=== PATIENT | female | born 1980 | race Caucasian/White ===

== ENCOUNTER 2023-07-20 08:51 | Emergency (ER) | payer OTHER, SELFPAY ==
[2023-07-20 08:52] VITALS: BP 110/66
--- NOTE | 2023-07-20 09:52 | ED.GENMED ---
History of Present Illness
General
Chief Complaint: Allergic Reaction
Source: patient
Time Seen by Provider: 07/20/23 09:42
Travel History
Have you had any contact with someone who has COVID-19?: No
Do you have any symptoms of coronavirus? Fever > 100 degrees, chills, cough, shortness of breath, sore throat, loss of taste or smell, muscle aches, or headache?: No
History of Present Illness
History of Present Illness:
43-year-old female presenting to the emergency department for evaluation of a reaction on her face/neck that she believes was related to a recent microneedling procedure done this past Wednesday although notes that for the last 10 months or so she
seems to be having more constant reactions to various medications/creams and believes that her body was reacting to something within her breast implants so had these removed about a month or so ago, had an allergic reaction to the glue/tape that was
placed over the surgical incisions. Patient states that she was given a hydrocortisone cream by the facility coordinator which she is used twice and has also started taking Benadryl since yesterday. Patient states that her main concern is erythema and
edema of her face but denies any difficulty breathing, swallowing, drooling, spitting or any other concerns.
Past History
Past History
ED Past Medical History: Psychiatric and Other (Obsessive-compulsive disorder); Negative HTN, Hypercholesterolemia, IDDM or NIDDM
ED Past Surgical History: and Other
Social History
Tobacco: Smoker
Alcohol: None
Drug: None
Personal: Single
Living: with family
Employment: Employed
Family History
Family History: Other (aunts with cva.); Negative Early CAD
Review of Systems
Review of Systems
All Other Systems: ROS reviewed and negative except as documented in HPI and ROS
Phy Exam
Physical Exam
Physical Exam:
GENERAL: Alert , in no apparent distress
EYE: conjunctiva clear
Head: Normocephalic atraumatic, patient has erythema across her face mainly concentrated around the cheeks and mandibular region with some mild soft tissue swelling
NECK: Supple,
ENT: mmm. No uvular deviation, no tonsillar edema, tolerating secretions, no stridor or trismus
LUNGS: no acute respiratory distress
NEUROLOGICAL: Alert and oriented
SKIN: Warm and dry, skin intact.
MUSCULOSKELETAL: well perfused.
PSYCH: Normal and appropriate interaction.
Scores
Heart Failure Risk
Heart Failure Risk Score: Not Applicable
Heart Score for Chest Pain Patients
STEMI patient?: Not applicable
Withdrawal Assessment of Alcohol
Withdrawal Assessment Completed?: Not applicable
Course
Vital Signs
Initial and Last Documented VS:
Initial Vital Signs
Temp Pulse Resp BP Pulse Ox
97.8 F 72 20 110/66 100
07/20/23 08:52 07/20/23 08:52 07/20/23 08:52 07/20/23 08:52 07/20/23 08:52
Last Documented Vital Signs
Temp Pulse Resp BP Pulse Ox
97.8 F 72 20 110/66 100
07/20/23 08:52 07/20/23 08:52 07/20/23 08:52 07/20/23 08:52 07/20/23 08:52
MDM/Problems Addressed
Differential Diagnosis Includes:
Contact dermatitis, inflammatory response, medication reaction
MDM/Problems Addressed:
43-year-old female presenting emergency department for evaluation of what she believes to be an allergic reaction/inflammatory response to cosmetic procedure done this past Wednesday. Notes that she has had inflammatory responses over the last 10
months to various different cosmetic procedures including lip filler as well as believing a reaction to her breast implants from a previous breast augmentation. Patient notes that she is very upset as she cannot figure out why these reactions keep
happening. There is no evidence for anaphylaxis. Will provide with a prescription for prednisone. Advised continued Benadryl as well as Pepcid for relief of symptoms. I provided patient with information for clamp remover as well as mathematics education professor for
an outpatient follow-up. She is otherwise stable for discharge from the emergency department.
*Pulse Oximetry
Patient hypoxic: no
*Critical Care Note
Total Time (30-74mins, 75-104mins- exclusive of procedures): Not Applicable
ED Attending Note
-
Portions of this chart may have been created with voice recognition software.� Occasional wrong word or��sound alike� substitutions may have occurred due to the inherent limitations of voice recognition software.
Discharge Plan
Departure
Patient Disposition: Home (Routine Discharge)
Date of Disposition: 07/20/23
Time of Disposition: 09:53
Patient with high blood pressure during this ER visit?: No
Discharge Problem:
Allergic reaction to cosmetics
Instructions: Allergic Reaction ED
Prescriptions:
New
prednisone 10 mg Tablet
See Rx Instructions .ROUTE .COMPLEX Qty: 30 0RF
Rx Instructions:
Take By Mouth:
40 mg daily x3 days, 30 mg daily x3 days,
20 mg daily x3 days, 10 mg daily x3 days.
No Action
Vitamins
1 mg PO DAILY
oxycodone-acetaminophen 5 MG/325 MG tablet
1 tab PO Q4HPRN PRN (Reason: moderate pain) Qty: 30 0RF
ibuprofen 600 MG tablet
600 mg PO Q6HPRN PRN (Reason: moderate pain/cramps) Qty: 0 0RF
Referrals:
Lupe Sebastian MD [Consulting Staff] - (Restaurant Crew Person - Call for appointment)
Bobbi Soares DO [Active] - (Dermatology - Call for appointment)
Interventions
Interventions:
*Risk Screen - Suicide Last Done: 07/20/23 08:52
*General Assessment Last Done: 07/20/23 08:52
*Neglect/Abuse Screening Last Done: 07/20/23 08:52
ED- Fall Risk Assessment Last Done: 07/20/23 10:00
*Nursing Disposition Last Done: 07/20/23 10:02
ED- Cardiac Assessment Last Done: 07/20/23 10:00
ED- Pulmonary Assessment Last Done: 07/20/23 10:00
ED-Skin Assessment Last Done: 07/20/23 10:00
Discharge Date and Time
Print Language: DJIBOUTIAN
--- NOTE | 2023-07-20 10:01 | EDRN ---
Discharge instructions given to patient by Rony Templeton Pa-C. Patient verbalized understanding. Ambulated with steady gait to the [facility].
== END 2023-07-20 10:03 | disposition home or self-care (01) ==
LOC: EMR 08:51
PROVIDERS: EMERGENCY PHYSICIAN Emergency Medicine; FAMILY PHYSICIAN Family Medicine
DX: T78.49XA Other allergy, initial encounter (principal); X58.XXXA Exposure to other specified factors, initial encounter; F17.200 Nicotine dependence, unspecified, uncomplicated
CPT/HCPCS: 99283

== ENCOUNTER 2023-07-26 09:31 | Emergency (ER) | payer OTHER, SELFPAY ==
[2023-07-26 09:43] VITALS: BP 105/77
[2023-07-26 10:05] LABS: % Basophils 0.7 % (0-2); % Immature Granulocytes 0.3 % (0-0.5); % Lymphocytes 33.3 % (20.5-51.1); % Monocytes 7.5 % (1.7-9.3); % Neutrophils 55.2 % (42.2-75.2); Absolute Basophils 0.1 10^3/uL (0-0.2); Absolute Eosinophils 0.2 10^3/uL (0-0.7); Absolute Lymphocytes 2.5 10^3/uL (1.2-3.4); Absolute Monocytes 0.6 10^3/uL (0.1-0.6); Absolute Neutrophils 4.1 10^3/uL (1.4-6.5); Hemoglobin 13.9 g/dL (12.0-16.0); Mean Corp Hgb Conc. 34.8 g/dL (33.0-37.0); Mean Corpuscular Hgb 33.1 pg (27.0-31.0); Mean Corpuscular Volume 95.2 fL (81.0-99.0); Mean Platelet Volume 8.8 fL (7.4-10.4); Nucleated Red Blood Cells % 0 %; Platelet Count 271 10^3/uL (130-400); Red Cell Dist. Width 12.1 % (11.5-14.5); White Blood Cell Count 7.4 10^3/uL (4.8-10.8)
[2023-07-26 10:32] LABS: ALT (SGPT) 18 U/L (0-35); AST (SGOT) 19 U/L (14-36); Albumin 4.9 g/dl (3.5-5.0); Alkaline Phosphatase 64 U/L (38-126); Blood Urea Nitrogen 19 mg/dl (7-17); Calcium 10.1 mg/dl (8.4-10.2); Carbon Dioxide 25 mmol/L (22-30); Chloride 103 mmol/L (98-107); Glucose 100 mg/dl (70-99); Potassium 3.8 mmol/L (3.5-5.1); Sodium 136 mmol/L (135-145); eGFR > 60.00
[2023-07-26] MEDS: ZOFRAN 4 MG IV ×2 (11:43→14:23)
[2023-07-26] MEDS: NSS 1000 IV ×2 (11:44→14:23)
--- NOTE | 2023-07-26 11:45 | ED.GENMED ---
History of Present Illness
General
Chief Complaint: Abdominal Symptoms
Source: patient
Exam Limitations: none
Time Seen by Provider: 07/26/23 10:55
Nursing documentation reviewed up to this point in time: agreed with
Travel History
Have you had any contact with someone who has COVID-19?: No
Do you have any symptoms of coronavirus? Fever > 100 degrees, chills, cough, shortness of breath, sore throat, loss of taste or smell, muscle aches, or headache?: No
History of Present Illness
History of Present Illness:
pt is a 43 y/o F with h/o anxiety/depression
on pred taper after allergic reaction to face cream after microneedling last week
here with diarrhea, starting 3 days ago, with anything she tries to eat or drink
5 pounds weigh tloss
also had some vomiting a few times on the day of onset but she otherwise hasn't vomited
she feels lightheaded with standing
no fever/chills, focal pain
the episodes of cramping intermittently but not severe
no urinary symptoms
no sore throat, cough, cold symptoms
Past History
Past History
ED Past Medical History: Psychiatric and Other (Obsessive-compulsive disorder); Negative HTN, Hypercholesterolemia, IDDM or NIDDM
ED Past Surgical History: and Other
Social History
Tobacco: Smoker
Alcohol: None
Drug: None
Personal: Single
Living: with family
Employment: Employed
Family History
Family History: Other (aunts with cva.); Negative Early CAD
Review of Systems
Review of Systems
Allergies reviewed?: Yes
All Other Systems: Not applicable
Phy Exam
Physical Exam
Physical Exam:
GENERAL: Alert , anxious
EYE: pupils equal and reactive
NECK: Supple
ENT: o/p clr, mmm.
CARDIAC: Regular rate and rhythm .no edema
LUNGS: Clear breath sounds bilaterally, no acute respiratory distress, no wheezes/rales/rhonchi
ABDOMEN: Soft, without focal tenderness, no r/g, no cvat, normal bowel sounds
NEUROLOGICAL: Alert and oriented, no focal neuro deficits
SKIN: Warm and dry, skin intact.
MUSCULOSKELETAL: No edema, well perfused. neg chauncey's sign
PSYCH: anxious, tearful, depressed;
Course
Orders/Labs/Results
Orders:
Orders
07/26/23 09:54
Complete Blood Count/With Diff Urgent
Comprehensive Metabolic Panel Urgent
HCG, Serum Qualitative Screen Urgent
Comment: ADD ON
TSH Reflex To Free T4 Urgent
Comment: ADD ON
07/26/23 11:33
Add On- LAB Urgent
Tests Added?: tsh reflex t4, hcg serum qual
0.9% Sodium Chloride 1000 ml [Nss] 1,000 ml IV BOLUS
Ondansetron Injectable [Zofran] 4 mg IV NOW STA
US Abdomen Complete/Upper Urgent
Comment:
Reason For Exam: elevated bili
07/26/23 11:42
Stool Culture Urgent
MISTI Source: Feces/Stool
Specimen Description:
Date Specimen was Collected: 07/26/23
Time Specimen was Collected: 11:39
07/26/23 11:43
STOOL [C difficile Antigen & Toxins] Urgent
MISTI Source: Feces/Stool
Specimen Description:
Date Specimen was Collected: 07/26/23
Time Specimen was Collected: 11:39
07/26/23 11:45
Crisis Consult Urgent
Reason for Consult: passive SI, anxiety, depression
07/26/23 14:18
0.9% Sodium Chloride 1000 ml [Nss] 1,000 ml IV BOLUS
Ondansetron Injectable [Zofran] 4 mg IV NOW STA
Abnormal Lab Results
07/26/23
09:54
MCH 33.1 H pg
(27.0-31.0)
BUN 19 H mg/dl
(7-17)
Creatinine 0.5 L mg/dL
(0.6-1.0)
Glucose 100 H mg/dl
(70-99)
Total Bilirubin 3.0 H mg/dl
(0.2-1.3)
07/26/23 09:54
07/26/23 09:54
Vital Signs
Initial and Last Documented VS:
Initial Vital Signs
Temp Pulse Resp BP Pulse Ox
98.1 F 96 14 105/77 96
07/26/23 09:43 07/26/23 09:43 07/26/23 09:43 07/26/23 09:43 07/26/23 09:43
Last Documented Vital Signs
Temp Pulse Resp BP Pulse Ox
98.1 F 68 18 106/68 98
07/26/23 14:13 07/26/23 14:13 07/26/23 14:13 07/26/23 14:13 07/26/23 14:13
MDM/Problems Addressed
Differential Diagnosis Includes:
gastroenteritis, c diff, colitis, anxiety, hypothyroidism
MDM/Problems Addressed:
43-year-old female comes in with nausea vomiting diarrhea over the last 3 days and she feels dehydrated and fatigued. There is a back story which was lengthy for the patient does describe having multiple issues with her health over the last year, 1
being a head injury causing some chronic concussive symptoms of memory loss and some headaches for which she has been seen before, she ended up having breast implants removed after feeling like she was reacting to them, she had a skin treatment with
fillers for her acne scars which she believed 'distorted my face.', Recently had a reaction to microneedling to help correct some of the scars on her face and she feels quite depressed and overwhelmed, she knows that she controls what she eats and
how much exercise she does because she does not want to gain weight, she has a lot of body dysmorphia symptoms and does admit to feeling that way and to affect her mental health. Patient is very tearful during this discussion and did admit to some
passive SI but did not have any plan, she lives with her kids and she knows that she would never do anything to harm herself. She is going through a divorce and her father is quite ill so she has a lot of other stressors as well. She did agree to
speak with crisis while she was here and they gave her some outpatient resources, agreed that the patient did not seem to be acutely suicidal.
As far as her other chronic issues, she does have an elevated total bilirubin of 3, I do not find other elevated bilirubins in her past but when I looked back at imaging she had an ultrasound here in 2020 and the reason for the ultrasound was an
elevated bilirubin, I brought this up to the patient and she says she has been told about this that she could have Madsen Bears disease. She was never followed up with GI for this. She believes that she has some sort of inflammatory condition or
autoimmune issues which are causing her to have a lot of chronic issues. Despite all of this she understands that in the emergency department today we best able to address what could be medical emergencies. As far as her symptoms she seems to have
a GI virus, she was recently on antibiotics within the last month so we waited for stool sample to rule out C. difficile which was negative. I suspect she has a viral gastroenteritis. Her labs are reassuring showing only mild dehydration and
elevated BUN. She was given a liter and a half of fluids, Zofran x 2 and felt much better. Ultrasound of her abdomen was negative. She was instructed to follow-up with both GI and family doctor
*Critical Care Note
Total Time (30-74mins, 75-104mins- exclusive of procedures): Not Applicable
ED Attending Note
-
Portions of this chart may have been created with voice recognition software.� Occasional wrong word or��sound alike� substitutions may have occurred due to the inherent limitations of voice recognition software.
Discharge Plan
Departure
Patient Disposition: Home (Routine Discharge)
Date of Disposition: 07/26/23
Time of Disposition: 15:22
Patient with high blood pressure during this ER visit?: No
Condition: Fair
Covid-19: Not Applicable
Discharge Problem:
Gastroenteritis
Instructions: Viral Gastroenteritis, Adult (DC)
Prescriptions:
New
ondansetron 4 mg tablet,disintegrating
4 mg PO Q8HPRN PRN (Reason: nausea and vomiting) 2 Days Qty: 5 0RF
No Action
Vitamins
1 mg PO DAILY
oxycodone-acetaminophen 5 MG/325 MG tablet
1 tab PO Q4HPRN PRN (Reason: moderate pain) Qty: 30 0RF
ibuprofen 600 MG tablet
600 mg PO Q6HPRN PRN (Reason: moderate pain/cramps) Qty: 0 0RF
prednisone 10 mg Tablet
See Rx Instructions .ROUTE .COMPLEX Qty: 30 0RF
Rx Instructions:
Take By Mouth:
40 mg daily x3 days, 30 mg daily x3 days,
20 mg daily x3 days, 10 mg daily x3 days.
Referrals:
Luda Sainz MD [Family Provider] - Follow up in 2-3 days
Stand Alone Forms: Return to Work
Activity Restrictions/Additional Instructions:
YOUR SYPMTOMS ARE PROBABLY FROM A VIRAL STOMACH BUG.
YOU TESTED NEGATIVE FOR C DIFF WHICH IS A BACTERIAL INFECTION
YOU WERE GIVEN ZOFFRAN AND HYDRATED WITH FLUIDS
TRY THE BRAT DIET, BANANAS RICE APPLESAUCE TOAST
DRINK FLUIDS TOLERATED
MAKE SURE TO FOLLOW UP WITH YOUR FAMILY DOCTOR AND GI REGARDING YOUR ELEVATED BILIRUBIN
RETURN FOR: SEVERE PAIN, FEVER, VOMITING, BLOODY DIARRHEA, SEVERE DEHYRATION OR ANY CONCERNS.
YOU CAN USE ZOFRAN EVERY 8 HOURS NEEDED FOR NAUSEA/VOMITING.
Interventions
Interventions:
*Risk Screen - Suicide Last Done: 07/26/23 09:43
*General Assessment Last Done: 07/26/23 09:43
*Neglect/Abuse Screening Last Done: 07/26/23 09:43
ED- Fall Risk Assessment Last Done: 07/26/23 15:34
*ED COVID-19 Vaccine History Last Done: 07/26/23 14:41
*Nursing Disposition Last Done: 07/26/23 15:34
JS-Rklffo-Lwjgiqilue Assessment Last Done: 07/26/23 14:41
Discharge Date and Time
Discharge Date/Time: 07/26/23 15:34
Print Language: TURKMEN
[2023-07-26 13:32] LABS: HCG, Serum Qualitative Screen Negative
[2023-07-26 14:13] VITALS: BP 106/68
== END 2023-07-26 15:34 | disposition home or self-care (01) ==
LOC: EMR 09:31
PROVIDERS: Student in an Organized Health Care Education/Training Program; EMERGENCY PHYSICIAN Emergency Medicine; FAMILY PHYSICIAN Family Medicine
DX: K52.9 Noninfective gastroenteritis and colitis, unspecified (principal); R11.2 Nausea with vomiting, unspecified; R42 Dizziness and giddiness; R10.9 Unspecified abdominal pain; R19.7 Diarrhea, unspecified; E86.0 Dehydration; Z63.5 Disruption of family by separation and divorce; R79.89 Other specified abnormal findings of blood chemistry; F32.A Depression, unspecified; F41.9 Anxiety disorder, unspecified; F42.9 Obsessive-compulsive disorder, unspecified; F17.200 Nicotine dependence, unspecified, uncomplicated; Z88.8 Allergy status to other drugs, medicaments and biological substances; Z91.048 Other nonmedicinal substance allergy status
CPT/HCPCS: 99284; 96374; 96361 ×2; 96376; 76700; 80053; 84443; 84703; 85025; 87045; 87046; 87324; 87427; 87449

== ENCOUNTER → 2024-03-25 10:51 | Outpatient (REF) | payer OTHER, SELFPAY | LOC: RAD 10:51 | PROVIDERS: ATTENDING PHYSICIAN Internal Medicine Gastroenterology; FAMILY PHYSICIAN Family Medicine | DX: K59.09 Other constipation (principal) | CPT/HCPCS: 74018 ==

== ENCOUNTER 2024-06-30 06:21 | Day surgery (SDC) | payer OTHER, SELFPAY | END 2024-06-30 15:48 | disposition home or self-care (01) | LOC: GI 06:21 | PROVIDERS: ATTENDING PHYSICIAN Internal Medicine Gastroenterology; FAMILY PHYSICIAN Family Medicine | DX: D12.3 Benign neoplasm of transverse colon (principal); K62.1 Rectal polyp; K64.8 Other hemorrhoids; K59.00 Constipation, unspecified; R14.0 Abdominal distension (gaseous); K44.9 Diaphragmatic hernia without obstruction or gangrene; K31.89 Other diseases of stomach and duodenum | CPT/HCPCS: 45385; 45380; 45381; 43239; 88305; 88342 ==

== ENCOUNTER → 2024-08-23 12:46 | Outpatient (REF) | payer OTHER, SELFPAY | LOC: HWRAD 12:46 | PROVIDERS: ATTENDING PHYSICIAN Nurse Practitioner Adult Health; FAMILY PHYSICIAN Family Medicine; OTHER PHYSICIAN Family Medicine; REFERRING PHYSICIAN Internal Medicine Gastroenterology | DX: N91.2 Amenorrhea, unspecified (principal); R10.2 Pelvic and perineal pain; R10.9 Unspecified abdominal pain | CPT/HCPCS: 74019; 76830; 76856 ==

== ENCOUNTER 2024-09-18 16:20 | Emergency (ER) | payer OTHER, SELFPAY ==
[2024-09-18 16:23] VITALS: BP 114/70
[2024-09-18 16:51] LABS: Urine Albumin 2+ (Neg - Trace); Urine Bilirubin Negative (Negative); Urine Character Clear (Clear); Urine Color Yellow; Urine Glucose Negative (Negative); Urine Ketone Negative (Negative); Urine Leukocyte 3+ (Negative); Urine Nitrite Negative (Negative); Urine Occult Blood 1+ (Negative); Urine Specific Gravity 1.025 (<1.030); Urine Urobilinogen Negative (Neg - 1+)
[2024-09-18 16:52] LABS: % Basophils 0.4 % (0-2); % Eosinophils 0.4 % (0-6); % Immature Granulocytes 0.1 % (0-0.5); % Lymphocytes 26.9 % (20.5-51.1); % Neutrophils 67.2 % (42.2-75.2); Absolute Lymphocytes 2.4 10^3/uL (1.2-3.4); Absolute Monocytes 0.5 10^3/uL (0.1-0.6); Hematocrit 34.3 % (37.0-47.0); Hemoglobin 11.9 g/dL (12.0-16.0); Mean Corp Hgb Conc. 34.7 g/dL (33.0-37.0); Mean Corpuscular Hgb 33.2 pg (27.0-31.0); Mean Corpuscular Volume 95.8 fL (81.0-99.0); Mean Platelet Volume 9.2 fL (7.4-10.4); Nucleated Red Blood Cells % 0 %; Platelet Count 234 10^3/uL (130-400); Red Blood Cell Count 3.58 10^6/uL (4.20-5.40); Red Cell Dist. Width 11.5 % (11.5-14.5)
[2024-09-18 17:07] LABS: HCG, Serum Qualitative Screen Negative
[2024-09-18 17:08] LABS: Urine Calcium Oxalate Crystals Present; Urine Squamous Cell >30 /LPF (Few)
[2024-09-18 17:09] LABS: Urine Bacteria Moderate (Negative); Urine White Cell 80-90 /HPF (0-5)
[2024-09-18 17:16] LABS: ALT (SGPT) 17 U/L (0-35); AST (SGOT) 21 U/L (14-36); Albumin 4.5 g/dl (3.5-5.0); Alkaline Phosphatase 43 U/L (38-126); Blood Urea Nitrogen 14 mg/dl (7-17); Calcium 9.5 mg/dl (8.4-10.2); Carbon Dioxide 33 mmol/L (22-30); Chloride 102 mmol/L (98-107); Glucose 69 mg/dl (70-99); Potassium 3.9 mmol/L (3.5-5.1); Sodium 139 mmol/L (135-145); Total Bilirubin 1.9 mg/dl (0.2-1.3); Total Protein 7.1 g/dl (6.3-8.2); eGFR > 60.00
--- NOTE | 2024-09-18 17:52 | ED.GENMED ---
History of Present Illness
<Marianna Bashir PA-C - Last Filed: 09/20/24 11:06>
General
Chief Complaint: Abdominal Pain
Source: patient
Exam Limitations: none
Time Seen by Provider: 09/18/24 17:22
History of Present Illness
History of Present Illness:
44yoF with a history of ADHD presenting for evaluation of abdominal pain. Symptoms have been ongoing for over a year and a half. She reports generalized abdominal pain and bloating. She is also having issues with constipation and is now having
issues urinating. She has been seen by multiple specialists including gastroenterology and gynecology. She underwent endoscopy, colonoscopy, and pelvic ultrasounds which have been normal. She was told to take magnesium citrate for her
constipation but she does not feel that this is a solution for her. She was prescribed a laxative by her GI doctor recently but has not picked up the prescription yet. Patient states she is not able to function and is not employed due to the
severity of her symptoms. She was not sure where else to turn so she came to the ED. Previous abdominal surgeries include section x 2 and a tummy tuck.
Past History
<Marianna Bashir PA-C - Last Filed: 09/20/24 11:06>
Past History
ED Past Medical History: Psychiatric and Other (Obsessive-compulsive disorder); Negative HTN, Hypercholesterolemia, IDDM or NIDDM
ED Past Surgical History: and Other
Social History
Tobacco: Smoker
Alcohol: None
Drug: None
Personal: Single
Living: with family
Employment: Employed
Family History
Family History: Other (aunts with cva.); Negative Early CAD
Phy Exam
<Marianna Bashir PA-C - Last Filed: 09/20/24 11:06>
General Physical Exam
General Presentation: well appearing
General Skin: warm and dry
General Habitus: normal
General Mental: alert
ENT Exam
ENT Exam: normocephalic
Pulmonary Exam
Pulmonary Exam: no respiratory distress
Gastrointestinal Exam
Gastrointestinal Exam: soft, non distended and other (+Generalized abdominal tenderness. No distention. No rebound or guarding.)
Neurological Exam
Neurological Exam: alert
Delmar Coma Scale
Eye Opening: Spontaneous
Verbal Response: Oriented
Motor Response: Obeys Commands
GCS Total Score: 15
Skin Exam
Skin Exam: normal color and warm/dry
Psychiatric Exam
Psychiatric Exam: anxious
<JYOTSNA Taveras Jr.C - Last Filed: 09/19/24 01:22>
Delmar Coma Scale
GCS Total Score: 15
Course
<Marianna Bashir PA-C - Last Filed: 09/20/24 11:06>
Orders/Labs/Results
Orders:
Orders
09/18/24 16:29
Test Result ONCE
09/18/24 16:35
Complete Blood Count/With Diff Urgent
Comprehensive Metabolic Panel Urgent
HCG, Serum Qualitative Screen Urgent
TSH Urgent
Comment: ADD ON
Urinalysis Reflex To Culture Urgent
Date Specimen was Collected: 09/18/24
Time Specimen was Collected: 16:29
Urine Microscopic Reflex Cult Urgent
Urine Culture Urgent
MISTI Source: U
Specimen Description:
Date Specimen was Collected: 09/18/24
Time Specimen was Collected: 16:29
09/18/24 17:52
Add On- LAB Urgent
Tests Added?: TSH
CT Abd/pel W Iv And Oral Contr Urgent
Comment:
Reason For Exam: generalized abd pain, bloating
Iohexol [Omnipaque] See Protocol PO NOW STA
09/18/24 19:10
Urinalysis Reflex To Culture Urgent
Date Specimen was Collected: 09/18/24
Time Specimen was Collected: 18:04
09/18/24 21:17
Pelvis & Transvaginal US [US Pelvis W Transvag Combined] Urgent
Comment:
Reason For Exam: abd pain, abnormal CT
09/19/24 00:11
Haloperidol Lactate [Haldol] 1 mg IV NOW STA
09/19/24 00:28
Electrocardiogram (*1) Urgent
Reason for Study: QTc Monitoring
EKG- Treatment ONCE
0.9% Sodium Chloride 1000 ml [Nss] 1,000 ml IV BOLUS
09/19/24 01:00
Capsaicin [Zostrix-Hp 0.075% Cream] See Dose Instructions TOPICAL ONCE ONE
Abnormal Lab Results
09/18/24
16:35
RBC 3.58 L 10^6/uL
(4.20-5.40)
Hgb 11.9 L g/dL
(12.0-16.0)
Hct 34.3 L %
(37.0-47.0)
MCH 33.2 H pg
(27.0-31.0)
Carbon Dioxide 33 H mmol/L
(22-30)
Glucose 69 L mg/dl
(70-99)
Total Bilirubin 1.9 H mg/dl
(0.2-1.3)
Ur Occult Blood Reflex 1+ A
(Negative)
Leukocyte Esterase Rfl 3+ A
(Negative)
Urine RBC 3-6 A /HPF
(0-2)
Urine WBC (Reflex) 80-90 A /HPF
(0-5)
Urine Bacteria (Reflex) Moderate A
(Negative)
Urine Albumin (Reflex) 2+ A
(Neg - Trace)
09/18/24 16:35
09/18/24 16:35
Vital Signs
Initial and Last Documented VS:
Initial Vital Signs
Temp Pulse Resp BP Pulse Ox
98.0 F 107 16 114/70 98
09/18/24 16:23 09/18/24 16:23 09/18/24 16:23 09/18/24 16:23 09/18/24 16:23
Last Documented Vital Signs
Temp Pulse Resp BP Pulse Ox
98.0 F 56 16 85/52 97
09/18/24 16:23 09/19/24 01:15 09/19/24 01:15 09/19/24 01:15 09/19/24 01:15
<Albert Coy Jr., PA-C - Last Filed: 09/19/24 01:22>
Orders/Labs/Results
Orders:
Orders
09/18/24 16:29
Test Result ONCE
09/18/24 16:35
Complete Blood Count/With Diff Urgent
Comprehensive Metabolic Panel Urgent
HCG, Serum Qualitative Screen Urgent
TSH Urgent
Comment: ADD ON
Urinalysis Reflex To Culture Urgent
Date Specimen was Collected: 09/18/24
Time Specimen was Collected: 16:29
Urine Microscopic Reflex Cult Urgent
Urine Culture Urgent
MISTI Source: U
Specimen Description:
Date Specimen was Collected: 09/18/24
Time Specimen was Collected: 16:29
09/18/24 17:52
Add On- LAB Urgent
Tests Added?: TSH
CT Abd/pel W Iv And Oral Contr Urgent
Comment:
Reason For Exam: generalized abd pain, bloating
Iohexol [Omnipaque] See Protocol PO NOW STA
09/18/24 19:10
Urinalysis Reflex To Culture Urgent
Date Specimen was Collected: 09/18/24
Time Specimen was Collected: 18:04
09/18/24 21:17
Pelvis & Transvaginal US [US Pelvis W Transvag Combined] Urgent
Comment:
Reason For Exam: abd pain, abnormal CT
09/19/24 00:11
Haloperidol Lactate [Haldol] 1 mg IV NOW STA
09/19/24 00:28
Electrocardiogram (*1) Urgent
Reason for Study: QTc Monitoring
EKG- Treatment ONCE
0.9% Sodium Chloride 1000 ml [Nss] 1,000 ml IV BOLUS
09/19/24 01:00
Capsaicin [Zostrix-Hp 0.075% Cream] See Dose Instructions TOPICAL ONCE ONE
Abnormal Lab Results
09/18/24
16:35
RBC 3.58 L 10^6/uL
(4.20-5.40)
Hgb 11.9 L g/dL
(12.0-16.0)
Hct 34.3 L %
(37.0-47.0)
MCH 33.2 H pg
(27.0-31.0)
Carbon Dioxide 33 H mmol/L
(22-30)
Glucose 69 L mg/dl
(70-99)
Total Bilirubin 1.9 H mg/dl
(0.2-1.3)
Ur Occult Blood Reflex 1+ A
(Negative)
Leukocyte Esterase Rfl 3+ A
(Negative)
Urine RBC 3-6 A /HPF
(0-2)
Urine WBC (Reflex) 80-90 A /HPF
(0-5)
Urine Bacteria (Reflex) Moderate A
(Negative)
Urine Albumin (Reflex) 2+ A
(Neg - Trace)
09/18/24 16:35
09/18/24 16:35
Vital Signs
Initial and Last Documented VS:
Initial Vital Signs
Temp Pulse Resp BP Pulse Ox
98.0 F 107 16 114/70 98
09/18/24 16:23 09/18/24 16:23 09/18/24 16:23 09/18/24 16:23 09/18/24 16:23
Last Documented Vital Signs
Temp Pulse Resp BP Pulse Ox
98.0 F 56 16 85/52 97
09/18/24 16:23 09/19/24 01:15 09/19/24 01:15 09/19/24 01:15 09/19/24 01:15
<Marianna Bashir PA-C - Last Filed: 09/20/24 11:06>
MDM/Problems Addressed
Differential Diagnosis Includes:
44yoF here with ongoing abd pain, bloating, and constipation x 1.5 years. Has seen GI/OBGYN and has not received a formal diagnosis. VSS. She is non-toxic appearing. No significant distention noted on abdominal exam and there are no signs of
peritonitis. Differential diagnosis includes but is not limited to: IBS, endometriosis, constipation, anxiety
Initial ED plan: Workup initiated in triage and labs are overall unremarkable. UA with 80-90 WBC and moderate bacteria although >30/LPF squamous epithelial cells present suggesting contaminated sample. Will repeat UA and check CT abdomen.
Final assessment: Repeat urinalysis is normal. CT shows 'Probable left corpus luteum cyst. Additional smaller hypodense left ovarian masses with ill-defined margins possibly cysts. Pelvic ultrasound recommended.' No other acute findings on imaging.
Case signed out to Cy Coy PA-C pending pelvic ultrasound results.
<Albert Coy Jr., PA-C - Last Filed: 09/19/24 01:22>
*Critical Care Note
Total Time (30-74mins, 75-104mins- exclusive of procedures): Not Applicable
<Albert Coy Jr., PA-C - Last Filed: 09/19/24 01:22>
Update Note
Update Note:
Patient's workup here without any acute abnormalities. Ultrasound and CT scan without acute emergent findings. The possibility of a cannabinoid related issue was discussed with the patient. She was given a dose of Haldol here and had significant
improvement of symptoms. She does claim that symptoms are only resolved at during hot showers and baths. She was advised for complete cessation of cannabinoid use and close outpatient follow-up. Return precautions given.
ED Attending Note
<Marianna Bashir PA-C - Last Filed: 09/20/24 11:06>
-
Portions of this chart may have been created with voice recognition software.� Occasional wrong word or��sound alike� substitutions may have occurred due to the inherent limitations of voice recognition software.
Discharge Plan
Departure
Patient Disposition: Home (Routine Discharge)
Date of Disposition: 09/19/24
Time of Disposition: 01:19
Patient with high blood pressure during this ER visit?: No
Condition: Good
Covid-19: Not Applicable
Discharge Problem:
Abdominal pain
Instructions: Abdominal Pain
Prescriptions:
No Action
Vitamins
1 mg PO DAILY
oxycodone-acetaminophen 5 MG/325 MG tablet
1 tab PO Q4HPRN PRN (Reason: moderate pain) Qty: 30 0RF
ibuprofen 600 MG tablet
600 mg PO Q6HPRN PRN (Reason: moderate pain/cramps) Qty: 0 0RF
prednisone 10 mg Tablet
See Rx Instructions .ROUTE .COMPLEX Qty: 30 0RF
Rx Instructions:
Take By Mouth:
40 mg daily x3 days, 30 mg daily x3 days,
20 mg daily x3 days, 10 mg daily x3 days.
ondansetron 4 mg tablet,disintegrating
4 mg PO Q8HPRN PRN (Reason: nausea and vomiting) 2 Days Qty: 5 0RF
Referrals:
Flako Castellano DO [Family Provider, Family Practice]
Activity Restrictions/Additional Instructions:
You came to the emergency department today with concerns of abdominal pain. Here you had a reassuring examination. You did have significant improvement of symptoms after receiving medication. Please follow closely as an outpatient. Return for
any worsening, new or concerning symptoms. Please discontinue any cannabinoid use.
Interventions
Interventions:
*Risk Screen - Suicide Last Done: 09/18/24 16:23
*Neglect/Abuse Screening Last Done: 09/18/24 16:23
*Nursing Disposition Last Done: 09/19/24 01:23
IJ-Rpxrnm-Trofmueqcg Assessment Last Done: 09/18/24 18:13
Discharge Date and Time
Discharge Date/Time: 09/19/24 01:23
Print Language: SAMI
[2024-09-18] MEDS: OMNIPAQUE 50 ML PO (18:02)
[2024-09-18 19:19] LABS: Urine Albumin Negative (Neg - Trace); Urine Bilirubin Negative (Negative); Urine Character Clear (Clear); Urine Color Yellow; Urine Glucose Negative (Negative); Urine Ketone Negative (Negative); Urine Leukocyte Negative (Negative); Urine Nitrite Negative (Negative); Urine Occult Blood Negative (Negative); Urine Urobilinogen Negative (Neg - 1+); Urine pH 6.5 (5.0-9.0)
[2024-09-18 20:10] LABS: TSH 1.08 uIU/ml (0.47-4.68)
[2024-09-18 20:55] VITALS: BP 98/59
[2024-09-19] MEDS: HALDOL 1 MG IV (00:26)
[2024-09-19] MEDS: ZOSTRIX-HP 0.075% CREAM 1 APPLIC TOPICAL (00:35)
[2024-09-19] MEDS: NSS 1000 IV (00:39)
[2024-09-19 01:15] VITALS: BP 85/52
== END 2024-09-19 01:23 | disposition home or self-care (01) ==
LOC: EMR 16:20
PROVIDERS: Physician Assistant; Student in an Organized Health Care Education/Training Program; EMERGENCY PHYSICIAN Emergency Medicine; FAMILY PHYSICIAN Family Medicine
DX: R10.84 Generalized abdominal pain (principal); K59.00 Constipation, unspecified; F17.200 Nicotine dependence, unspecified, uncomplicated
CPT/HCPCS: 96374; 96361; 99284; 74177; 76830; 76856; 80053; 81003; 81015; 84443; 84703; 85025; 87086; 93005; Q9967

== ENCOUNTER 2024-12-23 09:51 | Emergency (ER) | payer OTHER, SELFPAY ==
[2024-12-23 10:07] VITALS: BP 118/65
[2024-12-23 13:20] VITALS: BMI 20.9
[2024-12-23] MEDS: KENALOG-10 10 MG INTRAARTIC (14:22)
--- NOTE | 2024-12-23 14:22 | ED.GENMED ---
History of Present Illness
General
Chief Complaint: Musculo-Skeletal Complaint
Time Seen by Provider: 12/23/24 12:07
History of Present Illness
History of Present Illness:
44-year-old female presents to the emergency department for evaluation of right shoulder pain has been ongoing for the past 1 to 2 months. 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
No associated fevers or chills. Having increasing pain to the right trapezius region secondary to shoulder pain and is having extreme difficulty using it to any degree. No chest pain or trouble breathing
Past History
Past History
ED Past Medical History: Psychiatric and Other (Obsessive-compulsive disorder); Negative HTN, Hypercholesterolemia, IDDM or NIDDM
ED Past Surgical History: and Other
Social History
Tobacco: Smoker
Alcohol: None
Drug: None
Personal: Single
Living: with family
Employment: Employed
Family History
Family History: Other (aunts with cva.); Negative Early CAD
Review of Systems
Review of Systems
Allergies reviewed?: Yes
All Other Systems: ROS reviewed and negative except as documented in HPI and ROS
Phy Exam
Physical Exam
Physical Exam:
GEN: Well appearing, NAD, WDWN
HEENT: Oral mucosa moist, no scleral icterus
Cardiac: Regular rate
Lung: No respiratory distress, no tachypnea
MSK: No gross deformity or injuries. Right shoulder range of motion severely limited secondary to pain, no obvious shoulder effusion, passive range of motion elicits pain as well, no erythema or warmth
Skin: Good color, no pallor or jaundice, no rashes
Neuro: AO x3, moves all extremities freely
Psych: Calm, cooperative
Course
Orders/Labs/Results
Orders:
Orders
12/23/24 10:11
Shoulder, Right, Trauma [CR Shoulder, Trauma - Right] Urgent
Comment:
Reason For Exam: pain
12/23/24 13:32
Triamcinolone Acetonide [Kenalog-10] 10 mg INTRAARTIC NOW STA
12/23/24 14:22
Oxycodone [Roxicodone] 5 mg PO NOW STA
Vital Signs
Initial and Last Documented VS:
Initial Vital Signs
Temp Pulse Resp BP Pulse Ox
98.3 F 78 18 118/65 100
12/23/24 10:07 12/23/24 10:07 12/23/24 10:07 12/23/24 10:07 12/23/24 10:07
Last Documented Vital Signs
Temp Pulse Resp BP Pulse Ox
98.3 F 78 18 118/65 100
12/23/24 10:07 12/23/24 10:07 12/23/24 10:07 12/23/24 10:07 12/23/24 14:23
MDM/Problems Addressed
MDM/Problems Addressed:
X-rays independently interpreted by me show calcific tendinitis extensively of the right shoulder, no acute fractures. Patient was given a intra-articular triamcinolone injection via subacromial approach which she tolerated well. Will prescribe
supportive medications in addition. Recommend outpatient orthopedic follow-up
*Pulse Oximetry
SaO2: 100
Oxygen Mode of Delivery: Room air
Patient hypoxic: no
*Critical Care Note
Total Time (30-74mins, 75-104mins- exclusive of procedures): Not Applicable
ED Attending Note
-
Portions of this chart may have been created with voice recognition software.� Occasional wrong word or��sound alike� substitutions may have occurred due to the inherent limitations of voice recognition software.
Discharge Plan
Departure
Patient Disposition: Home (Routine Discharge)
Date of Disposition: 12/23/24
Time of Disposition: 14:22
Patient with high blood pressure during this ER visit?: No
Discharge Problem:
Calcific tendinitis of right shoulder
Instructions: Shoulder pain - ED (DC)
Prescriptions:
New
oxycodone 5 mg tablet
5 mg PO Q8H PRN (Reason: Pain) Qty: 8 0RF
methocarbamol 750 mg tablet
750 - 1,500 mg PO Q8H PRN (Reason: muscle spasm) Qty: 20 0RF
No Action
Vitamins
1 mg PO DAILY
oxycodone-acetaminophen 5 MG/325 MG tablet
1 tab PO Q4HPRN PRN (Reason: moderate pain) Qty: 30 0RF
ibuprofen 600 MG tablet
600 mg PO Q6HPRN PRN (Reason: moderate pain/cramps) Qty: 0 0RF
prednisone 10 mg Tablet
See Rx Instructions .ROUTE .COMPLEX Qty: 30 0RF
Rx Instructions:
Take By Mouth:
40 mg daily x3 days, 30 mg daily x3 days,
20 mg daily x3 days, 10 mg daily x3 days.
ondansetron 4 mg tablet,disintegrating
4 mg PO Q8HPRN PRN (Reason: nausea and vomiting) 2 Days Qty: 5 0RF
Referrals:
[facility], [Other]
Flako Castellano DO [Family Provider, Family Practice]
Activity Restrictions/Additional Instructions:
Follow up with your Orthopedic doctor
Interventions
Interventions:
*Risk Screen - Suicide Last Done: 12/23/24 10:07
*General Assessment Last Done: 12/23/24 14:34
*Neglect/Abuse Screening Last Done: 12/23/24 10:07
*ED- Fall Risk Assessment Last Done: 12/23/24 14:34
*ED COVID-19 Vaccine History Last Done: 12/23/24 14:33
*Nursing Disposition Last Done: 12/23/24 14:34
ED-Musculoskeletal Assessment Last Done: 12/23/24 14:34
Discharge Date and Time
Discharge Date/Time: 12/23/24 14:35
Print Language: JAPANESE
[2024-12-23] MEDS: ROXICODONE 5 MG PO (14:24)
== END 2024-12-23 14:35 | disposition home or self-care (01) ==
LOC: EMR 09:51
PROVIDERS: EMERGENCY PHYSICIAN Student in an Organized Health Care Education/Training Program; FAMILY PHYSICIAN Family Medicine
DX: M75.31 Calcific tendinitis of right shoulder (principal); F42.8 Other obsessive-compulsive disorder; F17.200 Nicotine dependence, unspecified, uncomplicated; Z82.3 Family history of stroke; Z98.891 History of uterine scar from previous surgery
CPT/HCPCS: 99283; 73030